=== PATIENT | male | born 1955 | race Caucasian/White ===

== ENCOUNTER 2023-07-07 14:49 | Emergency (ER) | payer MEDICARE, OTHER, SELFPAY ==
[2023-07-07] VITALS (7 sets, daily range): BP systolic 138–180; BP diastolic 93–122; PULSE 90–122; RESP 16–27; TEMP 36.8; O2SAT 95–99; BMI 21.7
--- NOTE | 2023-07-07 14:53 | ED_ITS ---
HPI - General Adult 2 General: Chief complaint: Arrhythmia/Palpitations Stated complaint: HTN Time Seen by Provider: 07/07/23 14:53 History of Present Illness: 67-year-old male presents emergency depa rtment with complaints that he started having heart palpitations intermittently for the previous 2 days. He states that he also had heart palpitations many years ago and was evaluated at that time and they told him that it was benign PVCs. He states that today he started feeling like his heart was racing and he states he checked his blood pressure and the systolic was over 200. He denies dizziness lightheaded feeling nausea or vomiting. He denies shortness of breath. He states that he does exercise 5- 6 times per week and that he also has 3-4 beers nightly and also 2 fingers of whiskey nightly. He states he is not seen a primary care doctor and does not have a primary care doctor. Associated symptoms: Reports chest pain and palpitations Review of Systems 2 General: Reports: 10 or more systems reviewed and unremarkable except in HPI and below Card: Reports: chest pain and palpitations Physical Exam 2 Narrative: EXAM NARRATIVE: Constitutional: the patient appears well nourished and with normal development. Vital signs reviewed as documented. HENMT: Normocephalic, atraumatic. External ears normal appearance without drainage. Nose without drainage, normal appearance. Mucus membranes moist. Neck is supple, No jugular venous distension, trachea is midline, no appreciable carotid bruits. No lymphadenopathy. No meningeal signs. Flexion, extension and lateral rotation is without pain. Eyes: Pupils are equal, round, reactive to light and accommodation. No scleral icterus. Extra-ocular movement are intact. Thorax is symmetrical and with equal rise and fall with respirations. Resp: Lungs are clear to auscultation. No wheezes, rales, crackles or ronchi at present. Cardio: Regular rate and rhythm. Positive S1, S2. No appreciable murmurs, rubs or gallops. GI: Abdominal exam reveals normal bowel sounds to all quadrants. No organomegaly. No obvious palpable masses noted. No hepatomegally appreciated. Soft, non-tender to palpation. Extremity: Extremities are non-edematous and both femoral and pedal pulses are 2+ and equal bilaterally. Moves all extremities well, sensation in all extremities. Neuro: Alert and oriented x4, person, place, time and situation. Cranial nerves II through XII are grossly intact, there is no focal neurological deficits that I can appreciate at present. Motor strength in the upper and lower extremities are equal and bilateral 5/5. Psych: Cooperative, calm, normal thought process, appropriate judgment. Skin: No lesions, rashes. No gross abnormalities noted. Back: Symmetrical, no obvious deformity, No CVA tenderness Course 2 Vital Signs: Vital signs: Vital Signs Temperature 98.3 F 07/07/23 14:55 Pulse Rate 99 07/07/23 17:57 Respiratory Rate 16 07/07/23 17:57 Blood Pressure 139/102 07/07/23 17:57 Pulse Oximetry 96 07/07/23 17:57 Oxygen Delivery Me thod Room Air 07/07/23 17:57 MDM - General Adult Medical Decision Making Physical exam completed and documented, I will obtain serial cardiac enzymes, serial twelve-lead EKGs, chest x-ray, CBC, CMP, urinalysis, B-type natriuretic peptide, PT/PTT/INR, and a chest x-ray. I will provide cardiac dose aspirin and nitroglycerin administration. Differential Diagnosis Benign palpitations, uncontrolled hypertension, NSTEMI Lab Data I reviewed the patient's lab results. 07/07/23 14:30 07/07/23 14:30 Radiology Impressions Chest X-Ray 07/07/23 14:53 IMPRESSION: 1. Negative for infiltrate. 2. Emphysematous changes. Laboratory Results WBC 6.37 10^3/uL (3.29-11.43) 07/07/23 14:30 RBC 5.92 10^6/uL (3.85-5.65) H 07/07/23 14:30 Hgb 17.50 g/dL (11.27-16.99) H 07/07/23 14:30 Hct 50.7 % (37-53) 07/07/23 14:30 MCV 85.6 fl (82-101) 07/07/23 14:30 MCH 29.6 pg (27-33) 07/07/23 14:30 MCHC 34.5 g/dL (30-55) 07/07/23 14:30 RDW 12.9 % (12.1-15.1) 07/07/23 14:30 Plt Count 216 10^3/cmm (157-399) 07/07/23 14:30 MPV 10.7 fL (7.4-10.4) H 07/07/23 14:30 Neut % (Auto) 67.3 % 07/07/23 14:30 Lymph % (Auto) 19.0 % 07/07/23 14:30 [place] % (Auto) 8.5 % 07/07/23 14:30 Eos % (Auto) 3.1 % 07/07/23 14:30 Baso % (Auto) 1.9 % 07/07/23 14:30 Neut # (Auto) 4.29 10^3/uL (1.8-7.7) 07/07/23 14:30 Lymph # (Auto) 1.2 10^3/uL (0.8-4.8) 07/07/23 14:30 [place] # (Auto) 0.5 10^3/uL (0.2-0.9) 07/07/23 14:30 Eos # (Auto) 0.2 10^3/uL (0.0-0.8) 07/07/23 14:30 Baso # (Auto) 0.1 10^3/uL (0.0-0.1) 07/07/23 14:30 Nucleated RBC % (auto) 0 % 07/07/23 14:30 Nucleated RBCs # 0.0 /100WBC 07/07/23 14:30 Sodium 133 mmol/L (136-145) L 07/07/23 14:30 Potassium 3.7 mmol/L (3.5-5.1) 07/07/23 14:30 Chloride 96 mmol/L (98-107) L 07/07/23 14:30 Carbon Dioxide 23 mmol/L (22-29) 07/07/23 14:30 Anion Gap 17.7 (5-19) 07/07/23 14:30 BUN 18 mg/dL (8-23) 07/07/23 14:30 Creatinine 0.9 mg/dL (0.7-1.2) 07/07/23 14:30 GFR Calculation 84.7 mL/min (90-130) L 07/07/23 14:30 Glucose 209 mg/dL (65-115) H 07/07/23 14:30 Calculated Osmolality 284 mOsm/kg (285-295) L 07/07/23 14:30 Calcium 9.0 mg/dL (8.5-10.5) 07/07/23 14:30 Total Bilirubin 0.5 mg/dL (0.15-1.2) 07/07/23 14:30 AST 27 U/L (0-40) 07/07/23 14:30 ALT 22 U/L (0-41) 07/07/23 14:30 Alkaline Phosphatase 90 U/L (40-130) 07/07/23 14:30 Troponin T Baseline 10 ng/L (0-15) 07/07/23 14:30 Troponin T 120 Minute 12.29 ng/L (0-15) 07/07/23 16:11 Delta Troponin T 2.29 ABS# (0-10) 07/07/23 16:11 NT-Pro-B Natriuret Pep 54 pg/mL (0-125) 07/07/23 14:30 Total Protein 6.9 g/dL (6.6-8.7) 07/07/23 14:30 Albumin 3.9 g/dL (3.5-5.2) 07/07/23 14:30 Globulin 3.0 g/dL (1.3-4.6) 07/07/23 14:30 All radiology interpretation(s) finalized by discharge EKG Data EKG 1: Interpretation: Twelve-lead EKG obtained at 1525 and reviewed at 1526 demonstrates sinus rhythm with a ventricular rate of 99 bpm, [place] interval 170 QRS 91 QT 353 QTc [address] elevation or depression at present to demonstrate acute ischemia or infarction. Computer generated interpretation: Chest X-Ray 07/07/23 14:53 IMPRESSION: 1. Negative for infiltrate. 2. Emphysematous changes. EKG 2: Interpretation: Twelve-lead EKG obtained at 1640 and reviewed at 1644 demonstrates sinus rhythm ventricular rate 85 bpm, [place] interval 174, QRS 90, QT 362, QTc [address] elevation or depression to demonstrate acute ischemia or infarction at present. Computer generated interpretation: Chest X-Ray 07/07/23 14:53 IMPRESSION: 1. Negative for infiltrate. 2. Emphysematous changes. Discharge Plan Discharge Patient Disposition: Home Clinical Impression: Palpitations, Hypertension, uncontrolled Condition: Stable Prescriptions: New amlodipine 10 mg tablet 10 mg PO DAILY Qty: 20 0RF No Action multivitamin Tablet 1 tab PO QAM latanoprost 0.005 % drops 1 drp ophthalmic (eye) BEDTIME Discharge Orders: Discharge ED (Routine); Ordered 07/07/23 Ordered By: Lauro Pereyra Referrals: Jesus Zhang DO [Physician] - Mando Woodard MD [Physician] - Discharge Diet: Low Salt Discharge Activity: Resume usual activity Patient Instructions: Opioid Safety, Pain Management Activity Restrictions/Additional Instructions: Activity Restrictions/Additional Instructions: Thank you for choosing [facility] for your healthcare needs today. Please realize that you were seen in the Emergency Department and that we are providing you with an emergency medical screening exam and this may not be a complete and all inclusive of all the testing and or medical work-up that you may need to determine your ailment or severity of your illness. It is very important that you follow-up as instructed with your Primary care provider or Specialist for additional evaluation and to discuss your medical treatment plan. You may return to the Emergency Department should you have concerns or if your condition changes or worsens in any way. Coding Level of Care Code ED Interventional Physician for Porter Merlos
--- NOTE | 2023-07-07 14:53 | ECG_ITS ---
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 Measurements Intervals [place] Rate: 99 P: 73 DC: 170 QRS: 56 QRSD: 91 T: 66 QT: 353 QTc: 453 Interpretive Statements SINUS RHYTHM No previous ECG available for comparison Electronically Signed On 07-08-2023 14:17:28 IMCU NURSE by Mainor Dickson M.D. [email or web address]/store/[id number]
--- NOTE | 2023-07-07 14:53 | XRR_ITS ---
PROCEDURE INFORMATION: Exam: XR Chest Exam date and time: 07/07/2023 3:15 PM Age: 67 years old Clinical indication: Pain; Angina pectoris; Patient HX: HTN; Tachycardia; HX skin CA TECHNIQUE: Imaging protocol: Radiologic exam of the chest. Views: 1 view. COMPARISON: No relevant prior studies available. FINDINGS: Lungs: Emphysematous changes. Pleural spaces: Unremarkable. No pleural effusion. No pneumothorax. Heart/Mediastinum: Unremarkable. No cardiomegaly. Bones/joints: Unremarkable. XR/XR chest 1V portable [id number] IMPRESSION: 1. Negative for infiltrate. 2. Emphysematous changes.
[2023-07-07 15:17] LABS: Basophils # 0.1 10^3/uL (0.0-0.1); Basophils % 1.9 %; Eosinophils # 0.2 10^3/uL (0.0-0.8); Eosinophils % 3.1 %; Hematocrit 50.7 % (37-53); Lymphocytes # 1.2 10^3/uL (0.8-4.8); Mean Corpuscular HGB Conc 34.5 g/dL (30-55); Mean Corpuscular Hemoglobin 29.6 pg (27-33); Mean Corpuscular Volume 85.6 fl (82-101); Mean Platelet Volume 10.7 fL (7.4-10.4); Monocytes # 0.5 10^3/uL (0.2-0.9); Monocytes % 8.5 %; Neutrophils # 4.29 10^3/uL (1.8-7.7); Neutrophils % 67.3 %; Nucleated Red Blood Cells % 0 %; Platelet Count 216 10^3/cmm (157-399); Red Blood Count 5.92 10^6/uL (3.85-5.65); Red Cell Distribution Width 12.9 % (12.1-15.1); White Blood Count 6.37 10^3/uL (3.29-11.43)
[2023-07-07] MEDS: nitroglycerin 0.4 mg sublingual Tablet SUBLINGUAL (15:22)
[2023-07-07] MEDS: amlodipine 5 mg Tablet PO (15:22)
[2023-07-07 15:45] LABS: Troponin(5th) Baseline 10 ng/L (0-15)
[2023-07-07 15:54] LABS: Alanine Aminotransferase 22 U/L (0-41); Albumin Level 3.9 g/dL (3.5-5.2); Alkaline Phosphatase 90 U/L (40-130); Blood Urea Nitrogen 18 mg/dL (8-23); Carbon Dioxide 23 mmol/L (22-29); Chloride 96 mmol/L (98-107); Glomerular Filtration Rate 84.7 mL/min (90-130); Glucose 209 mg/dL (65-115); NT Pro B Type Natriuretic Pept 54 pg/mL (0-125); Osmolality Calculated 284 mOsm/kg (285-295); Sodium 133 mmol/L (136-145); Total Bilirubin 0.5 mg/dL (0.15-1.2); Total Protein 6.9 g/dL (6.6-8.7)
[2023-07-07 15:55] LABS: Anion Gap 17.7 (5-19); Aspartate Amino Transferase 27 U/L (0-40); Potassium 3.7 mmol/L (3.5-5.1)
[2023-07-07 16:34] LABS: Troponin 5 2HR 12.29 ng/L (0-15); Troponin 5 2HR Delta 2.29 ABS# (0-10)
--- NOTE | 2023-07-07 16:40 | ECG_ITS ---
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 Measurements Intervals [place] Rate: 85 P: 52 [place]: 174 QRS: 4 QRSD: 90 T: 48 QT: 362 QTc: 432 Interpretive Statements SINUS RHYTHM Compared to ECG 07/07/2023 15:25:23 No significant changes Electronically Signed On 07-08-2023 14:20:19 RN PERITONEAL DIALYSIS by Mainor Dickson M.D. [email or web address].[employer]/store/OM/[id number]
[2023-07-07] MEDS: cloNIDine 0.1 mg Tablet PO (18:23)
[2023-07-07] MEDS: amlodipine 10 mg Tablet PO (18:30)
== END 2023-07-07 18:34 | disposition home or self-care (01) ==
PROVIDERS: Emergency Provider Internal Medicine
DX: R00.2 Palpitations (principal); I10 Essential (primary) hypertension
CPT/HCPCS: 36415; 71045; 80053; 83880; 84484; 85025; 93005; 99285

== ENCOUNTER 2023-11-28 19:02 | Emergency (ER) | payer MEDICARE, OTHER, SELFPAY ==
[2023-11-28 19:06] VITALS: BP 185/112; PULSE 89; RESP 18; TEMP 36.7; O2SAT 98
--- NOTE | 2023-11-28 19:07 | ECG_ITS ---
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 Measurements Intervals [place] Rate: 69 P: 16 [place]: 143 QRS: 23 QRSD: 98 T: 40 QT: 402 QTc: 433 Interpretive Statements SINUS RHYTHM Compared to ECG 07/07/2023 16:40:50 No significant changes Electronically Signed On 11-28-2023 20:18:39 CDT by Fly De La Torre M.D. [email or web address] specialty hospital of meridianRoomActuallyfirelands regional [facility].[employer]/store/OM/[id number]/[id number]
--- NOTE | 2023-11-28 19:07 | XRR_ITS ---
PROCEDURE INFORMATION: Exam: XR Chest Exam date and time: 11/28/2023 7:42 PM Age: 68 years old Clinical indication: Other: High BP; Additional info: Tachycardia TECHNIQUE: Imaging protocol: Radiologic exam of the chest. Views: 1 view. COMPARISON: CR XR chest 1V portable [id number] 07/07/2023 3:15 PM FINDINGS: Lungs: Lungs are hyperinflated. Clear parenchyma. Pleural spaces: No pleural effusion. No pneumothorax. Heart/Mediastinum: Cardiac silhouette is normal in size for technique. Bones/joints: Age appropriate. XR/XR chest 1V portable [id number] IMPRESSION: Hyperinflated but clear lungs. No other acute cardiopulmonary abnormality.
[2023-11-28 19:34] LABS: Basophils # 0.1 10^3/uL (0.0-0.1); Basophils % 1.7 %; Eosinophils # 0.1 10^3/uL (0.0-0.8); Eosinophils % 1.7 %; Hematocrit 52.3 % (37-53); Lymphocytes # 1.2 10^3/uL (0.8-4.8); Mean Corpuscular Hemoglobin 29.9 pg (27-33); Mean Corpuscular Volume 85.5 fl (82-101); Mean Platelet Volume 9.7 fL (7.4-10.4); Monocytes # 0.5 10^3/uL (0.2-0.9); Monocytes % 7.9 %; Neutrophils # 4.01 10^3/uL (1.8-7.7); Neutrophils % 68.5 %; Nucleated Red Blood Cells % 0 %; Platelet Count 230 10^3/cmm (157-399); Red Blood Count 6.12 10^6/uL (3.85-5.65); Red Cell Distribution Width 12.6 % (12.1-15.1); White Blood Count 5.85 10^3/uL (3.29-11.43)
--- NOTE | 2023-11-28 19:39 | ED_ITS ---
HPI - Arrhythmia/Palpitations 2 General: Chief Complaint: Arrhythmia/Palpitations Stated Complaint: high bp pulse race headache Time Seen by Provider: 11/28/23 19:17 History of Present Illness: Patient comes in with palpitations and high blood pressure. States that he was sitting or right after dinner on the couch when he developed sudden onset palpitations. States that he noticed his blood pressure was high. Patient states he had an episode similar to this years ago but everything resolved. Denies any cold symptoms including no fever, cough, congestion, vomiting, or diarrhea. States he has not had any chest pain or shortness of breath. Has a history of hypertension for which he takes metoprolol and lisinopril. Denies any coronary artery disease. He does not smoke. States he exercises regularly. Review of Systems 2 General: Reports: 10 or more systems reviewed and unremarkable except in HPI and below Physical Exam 2 Const: COMMON NORMALS: no acute distress, patient oriented x3, healthy appearing and alert HENMT: COMMON NORMALS: normocephalic and atraumatic HEAD & SCALP: n ormocephalic and atraumatic Eye: COMMON NORMALS: Equal, round and reactive pupils present and EOMs intact bilaterally PUPIL: Yes Equal, round and reactive pupils present Neck/C-Spine: COMMON NORMALS: full ROM and supple Resp: COMMON NORMALS: normal respiratory effort, No retractions and No use of accessory muscles Cardio: COMMON NORMALS: regular rate and regular rhythm RATE: regular rate RHYTHM: regular rhythm GI: COMMON NORMALS: Normal to inspection, nondistended, normoactive bowel sounds present, Soft to palpation and non-tender PALPATION: Yes Soft to palpation Back/Pelvis: COMMON NORMALS: thoracic and lumbar spine normal to inspection and no thoracic nor lumbar tenderness Extremity: COMMON NORMALS: normal to inspection and full ROM Neuro: COMMON NORMALS: patient oriented x3 SENSORIUM/ORIENTATION: Yes alert Psych: COMMON NORMALS: mental status grossly normal and cooperative Skin: COMMON NORMALS: no rashes or lesions noted and no wounds GENERAL SKIN EXAM: no rashes or lesions noted Course 2 Vital Signs: Vital signs: Vital Signs Temperature 98.1 F 11/28/23 19:06 Pulse Rate 89 11/28/23 19:06 Respiratory Rate 18 11/28/23 19:06 Blood Pressure 185/112 11/28/23 19:06 Pulse Oximetry 98 11/28/23 19:06 Oxygen Delivery Me thod Room Air 11/28/23 19:06 MDM - Arrhythmia/Palpitations Medical Decision Making Patient comes in with palpitations and high blood pressure. States that he was sitting or right after dinner on the couch when he developed sudden onset palpitations. States that he noticed his blood pressure was high. Patient states he had an episode similar to this years ago but everything resolved. Denies any cold symptoms including no fever, cough, congestion, vomiting, or diarrhea. States he has not had any chest pain or shortness of breath. Has a history of hypertension for which he takes metoprolol and lisinopril. Denies any coronary artery disease. He does not smoke. States he exercises regularly. Physical exam is unremarkable at this time. His heart rate is in the 80s. Will check labs, EKG, and reassess. On reassessment I talked the patient about the test results. His white blood cell count was normal at 5.8. His sodium, potassium, creatinine, and troponin are all within normal limits. Will put in a case management consult to get the patient set up with a cardiac event monitor. Will discharge at this time with precautions to return for worsening or changing symptoms. Lab Data 11/28/23 19:22 11/28/23 19:22 Laboratory Results WBC 5.85 10^3/uL (3.29-11.43) 11/28/23 19:22 RBC 6.12 10^6/uL (3.85-5.65) H 11/28/23 19:22 Hgb 18.30 g/dL (11.27-16.99) H 11/28/23 19:22 Hct 52.3 % (37-53) 11/28/23 19:22 MCV 85.5 fl (82-101) 11/28/23 19:22 MCH 29.9 pg (27-33) 11/28/23 19:22 MCHC 35.0 g/dL (30-55) 11/28/23 19:22 RDW 12.6 % (12.1-15.1) 11/28/23 19:22 Plt Count 230 10^3/cmm (157-399) 11/28/23 19:22 MPV 9.7 fL (7.4-10.4) 11/28/23 19:22 Neut % (Auto) 68.5 % 11/28/23 19:22 Lymph % (Auto) 20.0 % 11/28/23 19:22 [place] % (Auto) 7.9 % 11/28/23 19:22 Eos % (Auto) 1.7 % 11/28/23 19:22 Baso % (Auto) 1.7 % 11/28/23 19:22 Neut # (Auto) 4.01 10^3/uL (1.8-7.7) 11/28/23 19:22 Lymph # (Auto) 1.2 10^3/uL (0.8-4.8) 11/28/23 19:22 [place] # (Auto) 0.5 10^3/uL (0.2-0.9) 11/28/23 19:22 Eos # (Auto) 0.1 10^3/uL (0.0-0.8) 11/28/23 19:22 Baso # (Auto) 0.1 10^3/uL (0.0-0.1) 11/28/23 19:22 Nucleated RBC % (auto) 0 % 11/28/23 19:22 Nucleated RBCs # 0.0 /100WBC 11/28/23 19:22 Sodium 133 mmol/L (136-145) L 11/28/23 19:22 Potassium 3.8 mmol/L (3.5-5.1) 11/28/23 19:22 Chloride 95 mmol/L (98-107) L 11/28/23 19:22 Carbon Dioxide 25 mmol/L (22-29) 11/28/23 19:22 Anion Gap 16.8 (5-19) 11/28/23 19:22 BUN 13 mg/dL (8-23) 11/28/23 19:22 Creatinine 0.9 mg/dL (0.7-1.2) 11/28/23 19:22 GFR Calculation 84.4 mL/min (90-130) L 11/28/23 19:22 Glucose 103 mg/dL (65-115) 11/28/23 19:22 Calculated Osmolality 276 mOsm/kg (285-295) L 11/28/23 19:22 Calcium 9.8 mg/dL (8.5-10.5) 11/28/23 19:22 Total Bilirubin 0.5 mg/dL (0.15-1.2) 11/28/23 19:22 AST 17 U/L (0-40) 11/28/23 19:22 ALT 17 U/L (0-41) 11/28/23 19:22 Alkaline Phosphatase 79 U/L (40-130) 11/28/23 19:22 Troponin T Baseline 10 ng/L (0-15) 11/28/23 19:22 Total Protein 7.1 g/dL (6.6-8.7) 11/28/23 19:22 Albumin 4.6 g/dL (3.5-5.2) 11/28/23 19:22 Globulin 2.5 g/dL (1.3-4.6) 11/28/23 19:22 Urine Color Yellow (Yellow) 11/28/23 19:37 Urine Appearance Clear (CLEAR) 11/28/23 19:37 Urine pH 6.5 (5-7) 11/28/23 19:37 Ur Specific [place] 1.000 (1.005-1.030) L 11/28/23 19:37 Urine Protein Neg (Negative) 11/28/23 19:37 Urine Glucose (UA) Norm (Normal) 11/28/23 19:37 Urine Ketones 1+ (Negative) H 11/28/23 19:37 Urine Blood Neg (Negative) 11/28/23 19:37 Urine Nitrate Negative (Negative) 11/28/23 19:37 Urine Bilirubin Neg (Negative) 11/28/23 19:37 Urine Urobilinogen Neg mg/dL (Negative) 11/28/23 19:37 Ur Leukocyte Esterase Negative (Negative) 11/28/23 19:37 XR interpretation done by ED provider, pending radiology final review EKG Data EKG 1: Interpretation: ECG done November 28, 2023 at 7:11 PM and interpreted by me at 7:13 PM shows sinus rhythm, ventricular to 73 bpm, no ST segment elevation EKG 2: Interpretation: ECG done November 28, 2023 at 7:41 PM and interpreted by me at 7:43 PM shows sinus rhythm, ventricular rate of 69 bpm, no ST segment elevation, normal axis Discharge Plan Discharge Patient Disposition: Home Clinical Impression: Palpitations Condition: Stable Prescriptions: No Action multivitamin Tablet 1 tab PO QAM latanoprost 0.005 % drops 1 drp ophthalmic (eye) BEDTIME amlodipine 10 mg tablet 10 mg PO DAILY Qty: 20 0RF Discharge Orders: Discharge ED (Routine); Ordered 11/28/23 Ordered By: Addy Villegas Referrals: Emely Solorzano FNP [Primary Care Provider] - Patient Instructions: Heart Palpitations (ED) Coding Level of Care Code ED Computer Education Professor for Porter Merlos
[2023-11-28 19:44] LABS: Add Urine Microscopic? NO; Charge for UA Resulting for Rev
[2023-11-28 19:49] LABS: Troponin(5th) Baseline 10 ng/L (0-15)
[2023-11-28 19:51] LABS: Alanine Aminotransferase 17 U/L (0-41); Albumin Level 4.6 g/dL (3.5-5.2); Alkaline Phosphatase 79 U/L (40-130); Anion Gap 16.8 (5-19); Aspartate Amino Transferase 17 U/L (0-40); Blood Urea Nitrogen 13 mg/dL (8-23); Calcium 9.8 mg/dL (8.5-10.5); Carbon Dioxide 25 mmol/L (22-29); Chloride 95 mmol/L (98-107); Creatinine Clr Calc Pharmacy 86.3219; Globulin 2.5 g/dL (1.3-4.6); Glomerular Filtration Rate 84.4 mL/min (90-130); Glucose 103 mg/dL (65-115); Osmolality Calculated 276 mOsm/kg (285-295); Potassium 3.8 mmol/L (3.5-5.1); Sodium 133 mmol/L (136-145); Total Bilirubin 0.5 mg/dL (0.15-1.2); Total Protein 7.1 g/dL (6.6-8.7)
[2023-11-28 19:51] LABS: Bilirubin Urine Neg (Negative); Blood Urine Neg (Negative); Glucose Urine UA Norm (Normal); Ketones Urine 1+ (Negative); Leukocyte Esterase Urine Negative (Negative); Nitrate Urine Negative (Negative); Protein Urine Neg (Negative); Urine Appearance Clear (CLEAR); Urine Color Yellow (Yellow); Urobilinogen Urine Neg (Negative); pH Urine 6.5 (5-7)
[2023-11-28 20:14] VITALS: BP 153/114; PULSE 74; RESP 18; TEMP 36.7; O2SAT 98
--- NOTE | 2023-11-28 21:07 | ECG_ITS ---
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 Measurements Intervals [place] Rate: 73 P: 39 IN: 137 QRS: 19 QRSD: 90 T: 42 QT: 395 QTc: 435 Interpretive Statements SINUS RHYTHM Compared to ECG 07/07/2023 16:40:50 No significant changes Electronically Signed On 11-28-2023 20:22:56 CDT by Fly De La Torre M.D. [email or web address] [email or web address].[employer]ist[employer]/store/NU/[id number]
--- NOTE | 2023-11-29 04:26 | DCPLANNER ---
Message sent to Cardiology for holter Monitor-
== END 2023-11-28 20:28 | disposition home or self-care (01) ==
PROVIDERS: Emergency Medicine; Emergency Provider Emergency Medicine; PCP Registered Nurse
DX: R00.2 Palpitations (principal)
CPT/HCPCS: 36415; 71045; 80053; 81003; 84484; 85025; 93005; 99285